=== PATIENT | female | born 1940 | race Caucasian/White ===

== ENCOUNTER → 2016-09-18 | Day surgery (SDC) | payer MEDICARE, OTHER ==
[~2016-09-18] VITALS: Ht 161.3 cm; Wt 55.7 kg
[~2016-09-18] MED LIST: ACETAMINOPHEN/HYDROcodone 325 MG/5 MG TAB PO PRN; BUPIVACAINE HCL PF 0.5% 30 ML VIAL ONE; CEPH-459 PO; DENO60P SQ; DO NOT ADM ANY ANTICOAGULANT DRUGS XX PRN; EXEM25TA PO; FAMOTIDINE 20 MG/2 ML VIAL ONE; INSULIN HUMAN REGULAR 1,000 UNITS/10 ML VIAL SQ PRN; LACTATED RINGER'S 1000 ML IV SCH; LEVO75TA3 PO; LIDOCAINE HCL 2% 50 ML VIAL ONE; MEPERIDINE HCL 50 MG/ML VIAL IM PRN; METOPROLOL TARTRATE 25 MG TAB PO PRN; MIDAZOLAM HCL 2 MG/2 ML VIAL ONE; MONT10TA2 PO; MULT-135 PO; NEOMYCIN/POLYMYXIN 1 ML G.U. IRRIGANT IR ONE; NORC5TAB PO; ONDANSETRON HCL 4 MG/2 ML VIAL IV PUSH ONE; PHENYLEPH/NS 1000 MCG/10 ML SYR IV ONE; PROPOFOL 200 MG/20 ML AMP IV ONE; SODIUM CHLORID 0.9% 500 ML IV SCH; ceFAZolin 1,000 MG/NS 100 ML IV SCH; fentaNYL CITRATE 250 MCG/5 ML AMP ONE
[2016-09-18 12:03] VITALS: BP 141/79; PULSE 100; RESP 16; TEMP 98.2; O2SAT 99
[2016-09-18 12:56] LABS: AUTOMATED NEUTROPHIL # 4.4 TH/MM3 (1.8-7.7); BASOPHIL # 0.1 TH/MM3 (0-0.2); EOSINOPHIL # 0.1 TH/MM3 (0-0.4); EOSINOPHIL % 1.8 % (0.0-4.0); HEMATOCRIT 42.2 % (35.0-46.0); HEMO FLAGS DIFF FINAL; LYMPH % 19.6 % (9.0-44.0); LYMPHOCYTE # 1.2 TH/MM3 (1.0-4.8); MEAN CELL VOLUME 100.1 FL (80.0-100.0); MEAN CORPUSCULAR HEMOGLOBIN 34.8 PG (27.0-34.0); MEAN CORPUSCULAR HGB CONC 34.8 % (32.0-36.0); MONO % 7.2 % (0.0-8.0); NEUT % 70.4 % (16.0-70.0); PLATELET COUNT 242 TH/MM3 (150-450); RED BLOOD COUNT 4.21 MIL/MM3 (4.00-5.30); RED CELL DISTRIBUTION WIDTH 12.9 % (11.6-17.2); WHITE BLOOD COUNT 6.2 TH/MM3 (4.0-11.0)
--- NOTE | 2016-09-18 13:21 | HHI.PR ---
Immediate Post Op Note Procedure Date: Sep 18, 2016 Pre Op Diagnosis: (1) Trigger finger (2) Sesamoid pain Post Op Diagnosis: Surgeon: Kyle Bustamante III Senior Environmental Practice Leader(s): Procedure: Right thumb, index, middle, and ring A1 randall releases Right thumb sesamoidectomy Use of image intensifier Anesthesia: MAC, Local Drains: None IVF Patient to: PACU Patient Condition: Good Kyle Bustamante III, MD Sep 18, 2016 13:21
[2016-09-18 16:15] VITALS: BP 179/90; PULSE 16; RESP 18; TEMP 97.4; O2SAT 100
--- NOTE | 2016-09-19 06:44 | EKG ---
Date Performed: 09/18/2016 Time Performed: 11:55:39 PTAGE: 75 years EKG: Sinus rhythm LOW QRS VOLTAGE IN PRECORDIAL LEADS POSSIBLE RIGHT VENTRICULAR CONDUCTION DELAY POSSIBLE ANTERIOR MY OCARDIAL INFARCTION , PROBABLY OLD BORDERLINE ECG PREVIOUS TRACING : 11/10/2008 12.33 Compared to prior tracing no significant change DOCTOR: Endy Luna Interpretating Date/Time 09/19/2016 06:42:23
--- NOTE | 2016-09-21 08:28 | MP ---
cc: KYLE BUSTAMANTE III, M.D. DATE OF SURGERY: 09/18/2016 PREOPERATIVE DIAGNOSIS 1. Right thumb sesamoiditis 2. Right thumb trigger finger. 3. Right index finger trigger finger. 4. Right middle finger trigger finger. 5. Right ring finger trigger finger. POSTOPERATIVE DIAGNOSIS 1. Right thumb sesamoiditis 2. Right thumb trigger finger. 3. Right index finger trigger finger. 4. Right middle finger trigger finger. 5. Right ring finger trigger finger. PROCEDURE 1. Right thumb, index, middle and ring finger A1 randall releases. 2. Right thumb sesamoidectomy. 3. Use of image intensifier. SURGEON Kyle Bustamante III, MD DETAILS OF PROCEDURE The patient was brought to the operating room and placed supine on the operating table. After the correct site and side of surgery were verified by members of each team in the room multiple times including the patient and myself and after adequate preoperative markings and preoperative written consent were verified by everyone and after an adequate preoperative timeout was performed to everyone's satisfaction and after adequate anesthesia had been achieved, the right upper extremity was prepped and draped in the traditional sterile surgical fashion. A 50/50 mixture of 2% plain lidocaine and 0.5% plain Marcaine was infiltrated in the skin and subcutaneous tissue in the areas of the planned incision. The limb was exsanguinated using Mehdi wrap and then a highly placed well-padded axillary tourniquet was inflated to 200 mmHg for approximately 43 minutes. The mini C-arm was used to verify the location of the sesamoid in the thumb and preoperatively the point of maximum tenderness was also outlined with an indelible marker. The index, middle and ring fingers were addressed first and a small 1 cm incision in the flexion crease was made, carried down through skin and subcutaneous tissue. Blunt dissection was performed. The A1 pulleys were identified, incised and opened in the midline from their proximal-most to their distal-most extents. They were done in succession. Exploration proximally did not reveal any other crossing bands of tissue. The tendons were all in otherwise good condition. No other anatomic abnormalities were identified. Thorough irrigation with saline was performed. The skin edges were re-approximated using running 4-0 nylon suture. The thumb was then addressed in a transversely oriented incision within the MP joint flexion crease was made, carried down through skin and subcutaneous tissue. Blunt dissection was performed. The flexor tendon sheath was immediately identified as was the A1 randall and this was incised. The flexor tendon was then retracted ulnarly and the mobile radially sided sesamoid bone was identified and excised in its entirety along with some of the inflamed bone from the head of the metacarpal where it had been articulating. It was passed off the field as a specimen. There were no other anatomic abnormalities. There was no subluxation into the flexor tendon. Thorough irrigation was performed. The neurovascular structures were intact and uncompromised. The skin edges were re-approximated using running 4-0 nylon suture. The hand and arm were thoroughly cleansed and dried. Betadine and Adaptic dressings were applied. A bulky soft dressing was applied followed by a bulky circumferential dressing. The axillary tourniquet was released and the hand and all the fingers on the right became immediately soft, pink and warm and had brisk capillary refill of less than two seconds. There was no bleeding or hematoma formation. Hemostasis was present. The patient was awakened from anesthesia and transported to the post-anesthesia care unit awake and in stable condition at the end of the case. Final x-rays were obtained prior to closure to verify what appeared to be complete removal of the sesamoid bone in question. The patient tolerated the procedure well. MD SUKHDEV Pringle III/DARRYL /3:21 PM /8:09 AM
== END | disposition home or self-care (01) ==
LOC: HSDC 11:13
PROVIDERS: ATTEND Orthopaedic Surgery Hand Surgery
DX: M65.311 Trigger thumb, right thumb (principal); M65.331 Trigger finger, right middle finger; M65.341 Trigger finger, right ring finger; M65.321 Trigger finger, right index finger; M25.841 Other specified joint disorders, right hand; R94.31 Abnormal electrocardiogram [ECG] [EKG]
CPT/HCPCS: 01810; 26055; 26185; 85025; 88304; 88311; 93005; J0690; J2250; J2370; J2405; J3010; L3808; 88307